=== PATIENT | male | born 1980 | race Caucasian/White ===

== ENCOUNTER 2018-05-23 20:29 | Emergency (ER) | payer OTHER ==
[2018-05-23 20:30] VITALS: BMI 29.2
[2018-05-23 20:52] VITALS: BP 126/71; PULSE 82; RESP 20; O2SAT 98
--- NOTE | 2018-05-23 21:12 | C.PDOC ---
History Of Present Illness 37 y/o male comes to ed for detox from heroin and alcohol. pt reports using 15 bags of heroin ivda daily and has recently started drinking alcohol. He denies any medical or psychiatric complaints. Time Seen by Provider: 05/23/18 21:05 Chief Complaint (Nursing): Substance Abuse Past Medical History Vital Signs: Last Vital Signs Temp 98.4 F 05/23/18 20:48 Pulse 82 05/23/18 20:48 Resp 20 05/23/18 20:48 BP 126/71 05/23/18 20:48 Pulse Ox 98 05/23/18 21:57 - Medical History PMH: Denies: Chronic Kidney Disease - [facility] Procedures INCISION PILONIDAL SINUS (08/11/03) Family History: States: Unknown Family Hx - Social History Hx Alcohol Use: No (DENIES) Hx Substance Use: Yes - Immunization History Hx Tetanus Toxoid Vaccination: No Hx Influenza Vaccination: No Hx Pneumococcal Vaccination: No Review Of Systems Constitutional: Negative for: Fever Respiratory: Negative for: Shortness of Breath Gastrointestinal: Negative for: Vomiting Skin: Negative for: Rash Neurological: Negative for: Weakness, Headache, Dizziness Psych: Negative for: Psychosis, Suicidal ideation, Withdrawal Physical Exam - Physical Exam Appears: Non-toxic, No Acute Distress Skin: Normal Color, Warm, Dry, No Rash Head: Atraumatic, Normacephalic Eye(s): bilateral: Normal Inspection Nose: Normal Oral Mucosa: Moist Lips: Normal Appearing Neck: Normal ROM Chest: Symmetrical Cardiovascular: Rhythm Regular, No Murmur Respiratory: Normal Breath Sounds, No Accessory Muscle Use Gastrointestinal/Abdominal: Soft, No Tenderness Extremity: Normal ROM, No Deformity, No Swelling Neurological/Psych: Oriented x3, Normal Speech ED Course And Treatment - Laboratory Results Result Diagrams: 05/23/18 21:20 05/23/18 21:20 O2 Sat by Pulse Oximetry: 98 Medical Decision Making Medical Decision Makin pt noted not to be on stretcher. not found in restroom, elsewhere in ed or outside by ambulance bay. 2200 pt has not returned to stretcher. not seen in ed or outside ed 2220./ pt has not returned. not seen. pt has eloped. Disposition - Disposition Disposition: ELOPEMENT - ER ONLY Disposition Time: 22:20 Condition: STABLE Forms: [facility] (Yi) - Clinical Impression Clinical Impression: Polysubstance abuse
[2018-05-23 21:26] LABS: BASO % 0.7 % (0.0-2.0); EOS # 0.2 K/uL (0.0-0.7); HEMOGLOBIN 15.6 g/dL (12.0-18.0); LYMPH # 1.8 K/uL (1.0-4.3); LYMPH % 35.5 % (20.0-40.0); MEAN CELL VOLUME 87.3 fL (80.0-94.0); MEAN CORPUSCULAR HEMOGLOBIN 29.6 pg (27.0-31.0); MEAN CORPUSCULAR HGB CONC 33.9 g/dL (33.0-37.0); MEAN PLATELET VOLUME 9.8 fL (7.2-11.7); MONO # 0.3 K/uL (0.0-0.8); MONO % 6.7 % (0.0-10.0); NEUT # 2.8 K/uL (1.8-7.0); NEUT % 54.1 % (50.0-75.0); NRBC % 0.1 % (0.0-2.0); RBC 5.27 Mil/uL (4.40-5.90); RED CELL DISTRIBUTION WIDTH 13.6 % (11.5-14.5)
[2018-05-23 21:27] LABS: WHITE BLOOD COUNT 5.1 K/uL (4.8-10.8)
[2018-05-23 21:30] LABS: URINE BACTERIA RARE (<OCC); URINE BILIRUBIN NEGATIVE (NEGATIVE); URINE BLOOD NEGATIVE (NEGATIVE); URINE CLARITY Clear (Clear); URINE COLOR Yellow (YELLOW); URINE GLUCOSE (UA) NORMAL (Normal); URINE LEUKOCYTE ESTERASE NEG Leu/uL (Negative); URINE PROTEIN NEGATIVE (NEGATIVE); URINE UROBILINOGEN NORMAL mg/dL (0.2-1.0)
[2018-05-23 21:39] LABS: ALB/GLOB RATIO 1.3 (1.0-2.1); ALBUMIN 4.7 g/dL (3.5-5.0); ALT/SGPT 72 U/L (21-72); AST/SGOT 42 U/L (17-59); BLOOD UREA NITROGEN 8 mg/dL (9-20); CALCIUM 9.7 mg/dl (8.6-10.4); GFR AFRICAN-AMERICAN > 60; GFR NON-AFRICAN AMERICAN > 60
[2018-05-23 21:43] LABS: BARBITURATES, UR NEGATIVE (NEGATIVE); BENZODIAZEPINES, UR NEGATIVE (NEGATIVE); PHENCYCLIDINE, UR NEGATIVE (NEGATIVE)
[2018-05-23 21:49] LABS: OPIATES, UR POSITIVE (NEGATIVE)
[2018-05-23 22:30] VITALS: TEMP 98
== END 2018-05-23 22:23 | disposition left against medical advice (07) ==
LOC: C.ER 20:29
DX: F19.10 Other psychoactive substance abuse, uncomplicated (principal)

== ENCOUNTER 2018-05-26 10:18 | Emergency (ER) | payer OTHER ==
[2018-05-26 10:19] VITALS: BMI 29.2
[2018-05-26 11:02] VITALS: BP 116/69; PULSE 59; RESP 18; TEMP 98.2; O2SAT 97
--- NOTE | 2018-05-26 11:08 | C.PDOC ---
History Of Present Illness 37 year old male presents to the ED requesting detox for heroin abuse. Patient reports he injects heroin and his last use was today [employer]. Patient was seen on Saturday for similar complaints and AMA. Patient denies SI/HI, hallucinations, CP , SOB, fever, chills. Time Seen by Provider: 05/26/18 10:53 Chief Complaint (Nursing): Substance Abuse History Per: Patient History/Exam Limitations: no limitations Onset/Duration Of Symptoms: Hrs Current Symptoms Are (Timing): Still Present Suicide/Self Injury Attempted (Context): None Modifying Factor(s): Other (Heroin) Associated Symptoms: denies: Depression, Suicidal Thoughts, Suicidal Plan Recent travel outside of the [place]: No Additional History Per: Patient, EMS Past Medical History Reviewed: Historical Data, Nursing Documentation, Vital Signs Vital Signs: Last Vital Signs Temp 98.2 F 05/26/18 10:59 Pulse 59 L 05/26/18 10:59 Resp 18 05/26/18 10:59 BP 116/69 05/26/18 10:59 Pulse Ox 97 05/26/18 11:08 - Medical History PMH: No Chronic Diseases Denies: Chronic Kidney Disease Surgical History: No Surg Hx - [facility] Procedures INCISION PILONIDAL SINUS (08/11/03) Family History: States: Unknown Family Hx - Social History Hx Alcohol Use: No (DENIES) Hx Substance Use: Yes - Immunization History Hx Tetanus Toxoid Vaccination: No Hx Influenza Vaccination: No Hx Pneumococcal Vaccination: No Review Of Systems Constitutional: Negative for: Fever, Chills Cardiovascular: Negative for: Chest Pain, Palpitations Respiratory: Negative for: Cough, Shortness of Breath Skin: Negative for: Rash Neurological: Negative for: Weakness, Numbness Psych: Negative for: Depression, Suicidal ideation Physical Exam - Physical Exam Appears: Non-toxic, No Acute Distress Skin: Normal Color, Warm, Dry Head: Atraumatic, Normacephalic Eye(s): bilateral: Normal Inspection Oral Mucosa: Moist Neck: Normal ROM, Supple Chest: Symmetrical Cardiovascular: Rhythm Regular Respiratory: Normal Breath Sounds, No Rales, No Rhonchi, No Wheezing Gastrointestinal/Abdominal: Soft, No Tenderness, No Guarding, No Rebound Extremity: Normal ROM, No Tenderness, No Swelling Neurological/Psych: Oriented x3, Normal Speech Gait: Steady ED Course And Treatment O2 Sat by Pulse Oximetry: 97 (ON RA) Pulse Ox Interpretation: Normal Medical Decision Making Medical Decision Making: Patient was seen in the ED on Saturday and decided to leave AMA. There are no detox beds available at this time, patient will be D/C home with resources for heroin abuse. Disposition Counseled Patient/Family Regarding: Diagnosis, Need For Followup - Disposition Referrals: [facility] at [facility] [Outside] Disposition: HOME/ ROUTINE Disposition Time: 11:07 Condition: STABLE Additional Instructions: follow up with outpatient facility provided for detox call to make an appointment return to ER at any time. Instructions: Drug Abuse and Drug Addiction (DC) Forms: [facility] (Belgian), General Discharge Instructions - Clinical Impression Clinical Impression: Heroin abuse - Scribe Statement The provider has reviewed the documentation as recorded by the Scribe Jareth Lee All medical record entries made by the Scribe were at my direction and personally dictated by me. I have reviewed the chart and agree that the record accurately reflects my personal performance of the history, physical exam, medical decision making, and the department course for this patient. I have also personally directed, reviewed, and agree with the discharge instructions and disposition.
== END 2018-05-26 11:25 | disposition home or self-care (01) ==
LOC: C.ER 10:18
DX: F11.10 Opioid abuse, uncomplicated (principal)

== ENCOUNTER 2018-06-22 14:28 | Inpatient (IN) | payer OTHER ==
[2018-06-22 14:35] VITALS: BMI 26.4
[2018-06-22 15:00] LABS: BASO % 1.2 % (0.0-2.0); EOS # 0.2 K/uL (0.0-0.7); HEMOGLOBIN 14.3 g/dL (12.0-18.0); LYMPH # 1.6 K/uL (1.0-4.3); LYMPH % 49.6 % (20.0-40.0); MEAN CELL VOLUME 87.1 fL (80.0-94.0); MEAN CORPUSCULAR HEMOGLOBIN 29.6 pg (27.0-31.0); MEAN PLATELET VOLUME 10.3 fL (7.2-11.7); MONO # 0.3 K/uL (0.0-0.8); MONO % 10.9 % (0.0-10.0); NEUT # 1.1 K/uL (1.8-7.0); NEUT % 33.3 % (50.0-75.0); NRBC % 0.2 % (0.0-2.0); RBC 4.84 Mil/uL (4.40-5.90); RED CELL DISTRIBUTION WIDTH 13.6 % (11.5-14.5); WHITE BLOOD COUNT 3.2 K/uL (4.8-10.8)
[2018-06-22 15:12] LABS: URINE BILIRUBIN NEGATIVE (NEGATIVE); URINE BLOOD NEGATIVE (NEGATIVE); URINE CLARITY Hazy (Clear); URINE COLOR Yellow (YELLOW); URINE GLUCOSE (UA) NORMAL (Normal); URINE LEUKOCYTE ESTERASE NEG Leu/uL (Negative); URINE PROTEIN NEGATIVE (NEGATIVE)
[2018-06-22 15:14] LABS: ALB/GLOB RATIO 1.3 (1.0-2.1); ALBUMIN 3.9 g/dL (3.5-5.0); ALT/SGPT 42 U/L (21-72); AST/SGOT 25 U/L (17-59); BLOOD UREA NITROGEN 10 mg/dL (9-20); CALCIUM 8.8 mg/dl (8.6-10.4); GFR AFRICAN-AMERICAN > 60; GFR NON-AFRICAN AMERICAN > 60
[2018-06-22 15:32] LABS: BARBITURATES, UR NEGATIVE (NEGATIVE); BENZODIAZEPINES, UR NEGATIVE (NEGATIVE); PHENCYCLIDINE, UR NEGATIVE (NEGATIVE)
--- NOTE | 2018-06-22 15:55 | C.PDOC ---
History Of Present Illness 38 year old male presents to ED requesting detox from alcohol and heroin. He denies SI, HI, or any active physical complaints at this time. Time Seen by Provider: 06/22/18 15:03 Chief Complaint (Nursing): Substance Abuse History Per: Patient History/Exam Limitations: no limitations Modifying Factor(s): Alcohol Severity: None Pain Scale Rating Of: 0 Associated Symptoms: denies: Suicidal Thoughts, Suicidal Plan Involuntary Hold By: None Recent travel outside of the [place]: No Additional History Per: Patient Past Medical History Reviewed: Historical Data, Nursing Documentation, Vital Signs Vital Signs: Last Vital Signs Temp 98 F 06/22/18 14:35 Pulse 69 06/22/18 14:35 Resp 18 06/22/18 14:35 BP 136/82 06/22/18 14:35 Pulse Ox 96 06/22/18 15:55 - Medical History PMH: Denies: Chronic Kidney Disease - [facility] Procedures INCISION PILONIDAL SINUS (08/11/03) Family History: States: Unknown Family Hx - Social History Hx Alcohol Use: Yes Hx Substance Use: Yes (heroin) - Immunization History Hx Tetanus Toxoid Vaccination: No Hx Influenza Vaccination: No Hx Pneumococcal Vaccination: No Review Of Systems Except As Marked, All Systems Reviewed And Found Negative. Constitutional: Negative for: Fever, Chills Cardiovascular: Negative for: Chest Pain Respiratory: Negative for: Shortness of Breath Physical Exam - Physical Exam Additional Physical Exam Comments: Constitutional: No acute distress. Head: Normocephalic. Atraumatic. Eyes: PERRL. ENT: Moist mucous membranes. Neck: Supple. Cardiovascular: Regular rate. Radial pulse 2+ bilaterally. Chest: No tenderness. Respiratory: Clear to auscultation bilaterally. GI: Soft. Nontender. Nondistended. Back: No CVA tenderness. Musculoskeletal: No tenderness or swelling of extremities. Skin: No rash. Neurologic: Alert, no focal deficit. ED Course And Treatment - Laboratory Results Result Diagrams: 06/22/18 14:57 06/22/18 14:57 O2 Sat by Pulse Oximetry: 96 Disposition Discussed With : Shruti Kuhn Doctor Will See Patient In The: Hospital - Disposition Disposition: HOSPITALIZED Disposition Time: 16:39 Condition: FAIR Forms: [employer] (Icelandic) - Clinical Impression Clinical Impression: Opioid use disorder, severe, dependence, Alcohol use disorder, severe, dependence - Scribe Statement The provider has reviewed the documentation as recorded by the Judithibe Maryuri Horvath All medical record entries made by the Aracely were at my direction and personally dictated by me. I have reviewed the chart and agree that the record accurately reflects my personal performance of the history, physical exam, medical decision making, and the department course for this patient. I have also personally directed, reviewed, and agree with the discharge instructions and disposition.
[2018-06-22 16:02] LABS: OPIATES, UR POSITIVE (NEGATIVE)
--- NOTE | 2018-06-22 16:59 | PCM.BM ---
<Timothy Cook - Last Filed: 06/22/18 16:58> Treatment Plan Problems - Problems identified on initial assessmt potential for opiate withdrawal Date Initiated: 06/22/18 Time Initiated: 16:58 Status: Active Treatment assets and liabiliti Patient Assests: adapts well, cognitively intact Patient Liabilities: substance abuse - Milieu Protocol Maintain good personal hygiene: daily Encourage regular showers, daily Remind patient to perform daily oral care, daily Assist patient to perform ADL's Maintain personal safety: every shift Educate patient to report safety concerns to staff, every shift Monitor environment for contraband/sharps Medication safety: Monitor for expected outcome, potential side effects: every shift, Assess barriers to learning: every shift, Assess readiness for medication education: every shift <Katerina Gomez - Last Filed: 06/23/18 22:13> - Diagnosis (1) Alcohol use disorder, severe, dependence Status: Acute Interventions: 06/23/18 22:12 * Assess 7x/week regarding severity of withdrawal * Educate regarding risks, benefits, side effects and alternatives of medications * Use Motivational Interviewing for abstinence * Use CBT for relapse prevention * Medication management for withdrawal symptoms * Encourage medication assisted treatment * (2) Opioid use disorder, severe, dependence Status: Acute Interventions: 06/23/18 22:13 * Assess 7x/week regarding severity of withdrawal * Educate regarding risks, benefits, side effects and alternatives of medications * Use Motivational Interviewing for abstinence * Use CBT for relapse prevention * Medication management for withdrawal symptoms * Encourage medication assisted treatment *
[2018-06-22] MEDS ORDERED: Aluminum Hydroxide/Magnesium Hydroxide Susp (30 mL) PO PRN (17:22)
[2018-06-23] MEDS ORDERED: Buprenorphine Hydrochloride 2 mg SL ONE ×4 (09:59→19:00)
[2018-06-23 11:35] VITALS: RESP 18
[2018-06-23] MEDS: Multiple Vitamins Tab PO SCH (14:55)
--- NOTE | 2018-06-23 15:52 | PCM.PSYCH ---
Initial Psychiatric Evaluation - Initial Psychiatric Evaluation Type of Admission: Voluntary Legal Status: Capacity Chief Complaint (in patient's own words): "I need detox from heroin and alcohol." History of Present Illness and Precipitating Events: Pt is seen, chart reviewed, case discussed with staff. Pt is a 38 y/o male who presented to the ED yesterday evening for heroin and alcohol detox; pt lives in an apartment in [place] by himself; pt is with 3 sons aged 14, 9, & 3 who all live with their mother; pt works at a [employer]. Pt has a hx of heroin abuse which began 4 years ago; pt used intranasal for the first 3 years and began using IV into both arms this past year; pt last used 8 bags before coming to the ED. Pt reports that he began abusing alcohol 1 year ago; pt drinks a 6 pack of beer/ day; pt last drank a 6 pack of beer the night of 06/21; pt denies hx of seizures. Pt smokes 1 pack of cigarettes/day and requests a nicotine patch; pt denies use of any other illicit substances or pills but urine tox screen was positive for cocaine. Pt has never overdosed. Pt has been to detox once before last year at [facility], pt remained sober for 2 weeks after detox but had no after care and relapsed; pt has been to rehab 2x in [place] where he has family. Pts longest sobriety was 3 months with Suboxone and is interested in being referred to a Suboxone program. Pt describes and displays significant withdrawal sxs including shakes, discomfort, and nausea. Past med hx denied. Pt psyc hx is positive for feelings of anxiety for the past couple of months. Family psyc hx denied. Pt reports that he is interested in a Suboxone program and the Vivitrol shot, as well as being open to outpatient programs. Current Medications: Active Medications Generic Name Dose Route Start Last Admin Trade Name Freq PRN Reason Stop Dose Admin Acetaminophen 650 mg 06/22/18 17:22 Tylenol 325mg Tab PO Q4H PRN Pain, moderate (4-7) Al Hydrox/Mg Hydrox/Simethicone 30 ml 06/22/18 17:22 Maalox 30 Ml PO TID PRN Indigestion / Heartburn Buprenorphine HCl 2 mg 06/23/18 19:00 Subutex SL 06/23/18 19:01 ONCE ONE Buprenorphine HCl 8 mg 06/24/18 10:00 Subutex SL 06/28/18 09:59 .TAPER PRAKASH Taper Chlordiazepoxide 25 mg 06/23/18 14:30 06/23/18 14:55 Librium PO 06/28/18 14:31 25 mg Q4H PRN Administration Alcohol withdrawal Chlordiazepoxide 25 mg 06/23/18 18:00 Librium PO 06/27/18 17:59 Q6 PRAKASH Taper Clonidine HCl 0.1 mg 06/22/18 17:22 06/23/18 09:43 Catapres PO 0.1 mg Q8 PRN Administration COWS Score More or Equal to 5 Folic Acid 1 mg 06/23/18 14:45 06/23/18 14:56 Folic Acid PO 1 mg DAILY PRAKASH Administration Gabapentin 300 mg 06/23/18 10:00 06/23/18 09:43 Neurontin PO 300 mg BID PRAKASH Administration Hydroxyzine HCl 25 mg 06/22/18 18:07 06/22/18 19:14 Atarax PO 06/28/18 18:07 25 mg Q6 PRN Administration Anxiety Loperamide HCl 2 mg 06/22/18 17:22 Imodium PO Q8 PRN Diarrhea Multivitamins 1 tab 06/23/18 14:45 06/23/18 14:55 Hexavitamin PO 1 tab DAILY PRAKASH Administration Nicotine 1 patch 06/23/18 10:00 06/23/18 09:43 Nicoderm Cq TD 1 patch DAILY PRAKASH Administration Ondansetron HCl 4 mg 06/22/18 17:22 Zofran Tab PO Q8 PRN Nausea/Vomiting Thiamine HCl 100 mg 06/23/18 14:45 06/23/18 14:56 Vitamin B1 Tab PO 100 mg DAILY PRAKASH Administration Trazodone HCl 100 mg 06/22/18 17:24 06/22/18 21:04 Desyrel PO 100 mg HS PRN Administration Insomnia Past Psychiatric History - Past Psychiatric History Previous Treatment History: Inpatient Prior Psychiatric Treatment: [facility] Pertinent Medical Hx (Current Medical&Sleep Prob, Allergies): Allergies Allergy/AdvReac Type Severity Reaction Status Date / Time No Known Allergies Allergy Verified 06/22/18 14:35 No Known Home Med 05/23/18 Review of Systems - Psychiatric Psychiatric: Abnormal Sleep Pattern, Anhedonia, Change in Appetite, Difficulty Concentrating, Hopelessness. absent: Auditory Hallucinations, Hallucinations, Mood Swings, Paranoia, Suicidal Ideation, Visual Hallucinations, Tactile Hallucinations Mental Status Examination - Personal Presentation Personal Presentation: Looks stated age - Affect Affect: Constricted - Motor Activity Motor Activity: Calm - Reliability in Providing Information Reliability in Providing Information: Good - Speech Speech: Organized - Mood Mood: Anxious - Formal Thought Process Formal Thought Process: No Impairment - Obsessions/Compulsions Obsessions: No Compulsions: No - Cognitive Functions Orientation: Person, Place, Situation, Time Sensorium: Alert Attention/Concentration: Attentive Abstract Thinking: [place] Estimate of Intelligence: Average Judgement: Imparied, as evidence by: Poor judgement Memory: Recent intact, as evidence by: Ability to recall events of the day, Remote intact, as evidenced by: Abilit to recall sig. life events - Risk Risk: Withdrawal, Diminished functioning - Strength & Assets Inventory Strength & Assets Inventory: Cooperative - Limitations Limitations: Living alone, Other DSM 5 DX - DSM 5 DSM 5 Diagnosis: Opioid Withdrawal Opioid Use Disorder, severe Alcohol Withdrawal Alcohol Use Disorder, severe - Recommended/Plan of Treatment Treatment Recommendations and Plan of Treatment: Taper with Subutex , additional doses given bc of severe wdw Gabapentin for augmentation if needed As needed medications Atarax 50 mg for anxiety, Trazadone 100 mg for sleep All risks, benefits and alternatives of the meds discussed, and the pt agreed and understood. Attend groups and activities Supportive therapy and psychoeducation AR for abstinence CBT for relapse prevention Encourage MAT Refer to rehab or IOP, and self-help groups Smoking cessation with AR Nicotine patch 35 min Projected ELOS: 5 days - Smoking Cessation Smoking Cessation Initiated: Yes
[2018-06-24 06:26] VITALS: O2SAT 100
--- NOTE | 2018-06-24 08:44 | PCM.FALL ---
Post Fall Progress Note - Post Fall Fall Date: 06/24/18 Fall Time: 08:30 Description of Fall: Patient reports he was leaning against a couch with his back, and the couch slip backwards. The patient fell backwards onto his backside. This was heard by nurse Ananya. Patient is complaining of mild R-sided paravertrebral pain. - Post Fall Exam Vital Sign: Temp Pulse Resp BP Pulse Ox 97.4 F L 62 18 121/69 100 06/24/18 06:25 06/24/18 06:25 06/24/18 06:25 06/24/18 06:25 06/24/18 06:25 HR 60 BP 125/85 RR 18 O2 100 Temp 97.4 Skull Exam: Negative for: Scalp wound Eye Exam: Positive for: Pupils equal, Pupils reactive Ear Exam: Negative for: Bleeding Nose Exam: Negative for: Bleeding Skin Exam: Negative for: Lacerations, Bruising Mouth Exam: Negative for: Tongue bitten Neck Exam: Negative for: Tenderness Chest Exam: Negative for: Difficulty breathing Other pertinent findings: R muscle tenderness in lower back Impression/Plan: Patient was seen and examined immediately after the fall. Patient denies head trauma. Denies LOC. He states he is feeling fine. Patient is alert and oriented with normal gait. Patient can take Tylenol for pain as needed.
[2018-06-24] MEDS: Multiple Vitamins Tab PO SCH (09:27)
--- NOTE | 2018-06-24 09:46 | PCM.PYCHDC ---
Mental Status Examination - Mental Status Examination Orientation: Person, Place, Situation, Time Memory: Intact Mood: Anxious Affect: Constricted Speech: Appropriate Attention: WNL Concentration: Poor Association: WNL Fund of Knowledge: WNL Formal Thought Process: No Impairment Suicidal Ideation: No Current Homicidal Ideation?: No Discharge Summary - Discharge Note Reason for Hospitalization: Opioid detox Consultations:: List each consultation separately and include: 1. Reason for request. 2. Findings. 3. Follow-up Summary of Hospital Course include:: 1. Description of specific treatment plan utilized for patients during their course of treatmen. 2. Summarize the time- course for resolution of acute symptoms and/or regressed behaviors. 3. Describe issues identified and worked on during hospitalization. 4. Describe medication utilized. 5. Describe medical problems identified and treated. 6. Reassessment of suicide risk Summary of Hospital Course: Pt is seen, chart reviewed, case discussed with staff. On admission: Pt is a 38 y/o male who presented to the ED yesterday evening for heroin and alcohol detox; pt lives in an apartment in [place] by himself; pt is with 3 sons aged 14, 9, & 3 who all live with their mother; pt works at a [employer]. Pt has a hx of heroin abuse which began 4 years ago; pt used intranasal for the first 3 years and began using IV into both arms this past year; pt last used 8 bags before coming to the ED. Pt reports that he began abusing alcohol 1 year ago; pt drinks a 6 pack of beer/ day; pt last drank a 6 pack of beer the night of 06/21; pt denies hx of seizures. Pt smokes 1 pack of cigarettes/day and requests a nicotine patch; pt denies use of any other illicit substances or pills but urine tox screen was positive for cocaine. Pt has never overdosed. Pt has been to detox once before last year at [facility], pt remained sober for 2 weeks after detox but had no after care and relapsed; pt has been to rehab 2x in [place] where he has family. Pts longest sobriety was 3 months with Suboxone and is interested in being referred to a Suboxone program. Pt describes and displays significant withdrawal sxs including shakes, discomfort, and nausea. Past med hx denied. Pt psyc hx is positive for feelings of anxiety for the past couple of months. Family psyc hx denied. Pt reports that he is interested in a Suboxone program and the Vivitrol shot, as well as being open to outpatient programs. Hospital course: The pt was admitted and started on treatment with psychotherapy, support, psychoeducation and medications. AK and CBT used. The pt attended groups and activities, as well as milieu therapy. All the risks and benefits of medications are discussed and the patient understood and agreed. The pt improved with the treatments provided. However, due to "cigarette cravings and anxiety" he wanted to leave AMA. Meds offered to no avail he in fact got 12 mg of sbx on his first day He plans to try to convince his suboxone dr to take him back Risks involved, incl. relapse, OD and even discussed. he still left - Final Diagnosis (DSM 5) Condition upon Discharge: FAIR DSM 5: Opioid Withdrawal Opioid Use Disorder, severe Alcohol Withdrawal Alcohol Use Disorder, severe Disposition: AGAINST MEDICAL ADVICE Follow-up Treatment Plan: Go to MAT (Sbx) Use relapse prevention skills Return to ER or call 911 if suicidal, homicidal or symptoms relapse. Stay away from stress, alcohol and drugs. See primary doctor regularly and get labs. - Smoking Cessation Smoking Cessation Medication prescribed: No - Antipsychotic Medications Pt discharged on 2 or more routine antipsychotic medications: No
[2018-06-24] MEDS ORDERED: Buprenorphine Hydrochloride 2 mg SL SCH (10:00)
[2018-06-24 10:39] VITALS: BP 143/89; PULSE 57; TEMP 97.6
== END 2018-06-24 10:30 | disposition left against medical advice (07) | DRG 743 ==
LOC: C.ER 14:28 → C.7D 16:37
PROVIDERS: ADMIT Psychiatry & Neurology Psychiatry; ATTEND Psychiatry & Neurology Psychiatry
PROC: HZ2ZZZZ Detoxification Services for Substance Abuse Treatment (ICD-10-PCS; principal; 2018-06-22)
PROC: HZ5 Substance Abuse Treatment, Individual Psychotherapy (ICD-10-PCS; 2018-06-22)
PROC: HZ59ZZZ Individual Psychotherapy for Substance Abuse Treatment, Supportive (ICD-10-PCS; 2018-06-22)
PROC: HZ56ZZZ Individual Psychotherapy for Substance Abuse Treatment, Psychoeducation (ICD-10-PCS; 2018-06-22)
PROC: HZ42ZZZ Group Counseling for Substance Abuse Treatment, Cognitive-Behavioral (ICD-10-PCS; 2018-06-22)
PROC: HZ46ZZZ Group Counseling for Substance Abuse Treatment, Psychoeducation (ICD-10-PCS; 2018-06-22)
PROC: GZHZZZZ Group Psychotherapy (ICD-10-PCS; 2018-06-22)
PROC: GZ58ZZZ Individual Psychotherapy, Cognitive-Behavioral (ICD-10-PCS; 2018-06-22)
PROC: GZ56ZZZ Individual Psychotherapy, Supportive (ICD-10-PCS; 2018-06-22)
DX: F11.23 Opioid dependence with withdrawal (principal); F10.230 Alcohol dependence with withdrawal, uncomplicated; G47.00 Insomnia, unspecified; R45.84 Anhedonia; Y90.0 Blood alcohol level of less than 20 mg/100 ml; F17.210 Nicotine dependence, cigarettes, uncomplicated; F14.90 Cocaine use, unspecified, uncomplicated; S39.92XA Unspecified injury of lower back, initial encounter; W08.XXXA Fall from other furniture, initial encounter